=== PATIENT | female | born 1990 | race Asian ===

== ENCOUNTER 2019-07-03 16:30 | Emergency (ER) | payer OTHER ==
[~2019-07-03] VITALS: Ht 167.6 cm; Wt 73.5 kg
[2019-07-03 16:45] VITALS: BP 149/94
== END 2019-07-03 18:17 | disposition home or self-care (01) ==
LOC: ED 16:30
DX: R25.2 Cramp and spasm (principal)
CPT/HCPCS: 81000; 81025; 96372; 99283; J2360